=== PATIENT | male | born 1990 | race Caucasian/White ===

== ENCOUNTER 2016-11-09 20:59 | Emergency (ER) | payer BC ==
[~2016-11-09] VITALS: Ht 185.4 cm; Wt 98.8 kg
[2016-11-09 21:54] LABS: EOSINOPHIL (%) 1.5 % (0-5); EOSINOPHIL COUNT 0.2 K/uL (0-0.3); HEMATOCRIT 41.1 % (38.0-50.0); IMMATURE GRANULOCYTE (%) 0.7 % (0.0-0.7); IMMATURE GRANULOCYTE COUNT 0.1 K/uL; INSTRUMENT ABS NEUTROPHIL CT 9.4 K/uL; LYMPHOCYTE COUNT 1.7 K/uL (1.0-2.8); MCH 28.8 PG (29.0-34.0); MCHC 32.4 G/DL (30.0-36.0); MEAN PLAT.VOLUME 10.2 uM^3 (9.0-12.4); MONOCYTE (%) 11.9 % (3-12); MONOCYTE COUNT 1.5 K/uL (0-0.8); NEUTROPHIL (%) 72.8 % (45-76); NEUTROPHIL COUNT 9.4 K/uL (1.8-6.4); PLATELET COUNT 212 K/uL (156-360); RBC DIS.WIDTH-CV 12.4 % (11.8-14.6); RBC DIS.WIDTH-SD 40.6 % (39-53); RED BLOOD COUNT 4.62 M/uL (4.00-5.50); WHITE BLOOD COUNT 12.8 K/uL (4.1-10.2)
[2016-11-09 22:04] LABS: CHLORIDE 100 mEq/L (99-109); POTASSIUM 3.6 mEq/L (3.7-5.4); SODIUM 139 mEq/L (136-147)
[2016-11-09 22:06] LABS: GLUCOSE 106 mg/dL (70-99)
[2016-11-09 22:07] LABS: ANION GAP 11 MEQ/L (2-14)
[2016-11-09 22:08] LABS: TOTAL BILIRUBIN 0.6 mg/dL (0.0-1.0)
[2016-11-09 22:10] LABS: ALKALINE PHOSPHATASE 50 IU/L (3-129); GFR ESTIMATE (CALCULATED) > 59 mL/min/
[2016-11-09 22:11] LABS: UREA NITROGEN (BUN) 12 mg/dL (9-23)
[2016-11-10] MEDS ORDERED: MOTRIN600 MG PO (02:10)
[2016-11-10] MEDS ORDERED: CLEOCIN300 MG PO (02:10)
[2016-11-10] MEDS ORDERED: PERCOCET 5/31 TABLET PO (02:10)
[2016-11-10 02:26] VITALS: BP 104/48
== END 2016-11-10 02:26 | disposition home or self-care (01) ==
LOC: EME 20:59
PROVIDERS: Emergency Medicine
PROC: 0C9PXZZ Drainage of Tonsils, External Approach (ICD-10-PCS; principal; 2016-11-10)
DX: J36 Peritonsillar abscess (principal)
CPT/HCPCS: 70491; 80053; 85025; 99281; 99285; J1100; J1885

== ENCOUNTER 2016-11-11 15:51 | Emergency (ER) | payer BC ==
[~2016-11-11] VITALS: Ht 188 cm; Wt 98.6 kg
[~2016-11-11 15:51] MED LIST: CLEOCIN300 MG PO; MOTRIN600 MG PO; PERCOCET 5/31 TABLET PO
[2016-11-11 17:08] LABS: EOSINOPHIL (%) 2.3 % (0-5); EOSINOPHIL COUNT 0.3 K/uL (0-0.3); IMMATURE GRANULOCYTE (%) 0.6 % (0.0-0.7); IMMATURE GRANULOCYTE COUNT 0.1 K/uL; INSTRUMENT ABS NEUTROPHIL CT 7.4 K/uL; LYMPHOCYTE COUNT 2.4 K/uL (1.0-2.8); MCH 29.2 PG (29.0-34.0); MCHC 32.3 G/DL (30.0-36.0); MCV 90.5 FL (86-99); MEAN PLAT.VOLUME 10.1 uM^3 (9.0-12.4); MONOCYTE (%) 11.5 % (3-12); MONOCYTE COUNT 1.3 K/uL (0-0.8); NEUTROPHIL (%) 64.2 % (45-76); NEUTROPHIL COUNT 7.4 K/uL (1.8-6.4); PLATELET COUNT 227 K/uL (156-360); RBC DIS.WIDTH-CV 12.4 % (11.8-14.6); RBC DIS.WIDTH-SD 41.1 % (39-53); RED BLOOD COUNT 4.42 M/uL (4.00-5.50); WHITE BLOOD COUNT 11.6 K/uL (4.1-10.2)
[2016-11-11 17:18] LABS: CHLORIDE 104 mEq/L (99-109); POTASSIUM 4.2 mEq/L (3.7-5.4); SODIUM 141 mEq/L (136-147)
[2016-11-11 17:19] LABS: GLUCOSE 92 mg/dL (70-99)
[2016-11-11 17:21] LABS: ANION GAP 9 MEQ/L (2-14)
[2016-11-11 17:23] LABS: GFR ESTIMATE (CALCULATED) > 59 mL/min/
[2016-11-11 17:24] LABS: UREA NITROGEN (BUN) 19 mg/dL (9-23)
[2016-11-11 21:38] VITALS: BP 109/60
== END 2016-11-11 21:41 | disposition home or self-care (01) ==
LOC: EME 15:51
PROVIDERS: Emergency Medicine
PROC: 0C9P3ZX Drainage of Tonsils, Percutaneous Approach, Diagnostic (ICD-10-PCS; principal; 2016-11-11)
DX: J36 Peritonsillar abscess (principal); H92.01 Otalgia, right ear
CPT/HCPCS: 70491; 80048; 85025; 99281; 99284; J1100; J2060